=== PATIENT | male | born 1945 | race Caucasian/White ===

== ENCOUNTER → 2022-11-19 08:35 | Outpatient (CLI) | payer OTHER, SELFPAY ==
--- NOTE | 2022-11-19 08:37 | DI.RAD.S_ITS ---
PROCEDURE: XR CHEST 2V INDICATIONS: Cough and wheezing TECHNIQUE: 2 views of the chest were acquired. COMPARISON: None. FINDINGS: Surgical changes and devices: None. Lungs and pleura: Lungs are clear. No pleural effusions or pneumothorax. Mediastinum: Mediastinal contours are normal. Heart size is normal. Bones and chest wall: No suspicious bony abnormalities. Soft tissues appear unremarkable. IMPRESSION: No acute pulmonary process. Dictated by: Tammie Lentz M.D. on 11/19/2022 at 8:52 Approved by: Tammie Lentz M.D. on 11/19/2022 at 8:52
== END ==
PROVIDERS: Referring Provider Urology; Visit Provider Urology
DX: R05.9 Cough, unspecified (principal)
CPT/HCPCS: 71046